=== PATIENT | female | born 1990 | race Caucasian/White ===

== ENCOUNTER 2018-09-22 18:09 | Emergency (ER) | payer MEDICAID, OTHER ==
[~2018-09-22] VITALS: Ht 162.6 cm; Wt 94.0 kg
[2018-09-22 18:15] VITALS: BP 161/109
[2018-09-22] MEDS ORDERED: ketorolac trometh. 30mg/ml inj. IV ONE (18:40)
[2018-09-22] MEDS ORDERED: ondansetron/PF 4mg/2ml inj IV ONE (18:40)
[2018-09-22] MEDS ORDERED: NO HOME MEDS (18:46)
[2018-09-22 18:49] LABS: URINE HCG NEGATIVE (NEG)
[2018-09-22 18:55] LABS: CLARITY,URINE SLIGHTLY CLOUDY (Clear); COLOR,URINE YELLOW (Yellow); GLUCOSE, URINE NEGATIVE (Neg); KETONES,URINE NEGATIVE (Neg); LEUKOCYTE ESTERASE ,URINE TRACE (Neg); NITRITES, URINE POSITIVE (Neg); OCCULT BLOOD,URINE TRACE-INTACT (Neg); PH,URINE 7.5 (4.8-8.0); PROTEIN,URINE NEGATIVE (Neg); UROBILINOGEN,URINE 0.2 E.U/dL (0.2-1.0)
[2018-09-22 18:57] LABS: UA COLLECTION TYPE CLN CATCH MIDSTREAM
[2018-09-22 19:13] LABS: BACTERIA,URINE 3+ /HPF (Neg); MUCUS STRANDS NONE SEEN /LPF (Neg); SQUAMOUS EPITHELIAL CELL,UR FEW /LPF (FEW)
[2018-09-22 20:00] LABS: ALANINE AMINOTRANSFERASE 30 U/L (12-78); ALBUMIN 4.1 G/DL (3.4-5.0); ALKALINE PHOSPHATASE 62 IU/L (46-116); ANION GAP 11 (8-16); ASPARTATE AMINO TRANSFERASE 17 U/L (10-37); BILIRUBIN,TOTAL 0.5 MG/DL (0.1-1.0); BLOOD UREA NITROGEN 9 MG/DL (7-18); BUN/CREATININE RATIO 10.7 (6.6-38.0); CALCIUM 9.1 MG/DL (8.5-10.1); CHLORIDE 100 MMOL/L (99-107); CREATININE 0.84 MG/DL (0.40-0.90); GLUCOSE 106 MG/DL (70-104); POTASSIUM 3.3 MMOL/L (3.5-5.1); SODIUM 139 MMOL/L (135-145); TOTAL PROTEIN 8.1 G/DL (6.4-8.2); eGFR 82 ML/MIN
[2018-09-22 20:16] LABS: BASOPHILS % (AUTO) 0.3 % (0-1); EOSINOPHILS # (AUTO) 0.2 X10'3 (0-0.9); HEMATOCRIT 38.5 % (35.0-45.0); HEMOGLOBIN 12.5 g/dl (12.0-16.0); LYMPHOCYTES # (AUTO) 2.1 X10'3 (1.1-4.8); LYMPHOCYTES % (AUTO) 19.4 % (21-51); MEAN CORPUSCULAR HEMOGLOBIN 27.8 PG (27.0-31.0); MEAN CORPUSCULAR HGB CONC 32.4 % (33.0-36.5); MEAN CORPUSCULAR VOLUME 85.8 FL (78-98); MEAN PLATELET VOLUME 10.9 FL (7.4-10.4); MONOCYTES # (AUTO) 0.6 X10'3 (0-0.9); MONOCYTES % (AUTO) 5.5 % (2-12); NEUTROPHILS # (AUTO) 7.7 X10'3 (1.8-7.7); NEUTROPHILS % (AUTO) 72.8 % (42-75); PLATELET COUNT 308 X10'3 (140-440); RED BLOOD COUNT 4.49 X10'6 (4.20-5.60); RED CELL DISTRIBUTION WIDTH 17.5 % (11.5-14.5); WHITE BLOOD COUNT 10.6 X10'3 (4.5-11.0)
[2018-09-22] MEDS ORDERED: nitrofurantoin macrocrystal 100mg capsule PO STA (20:26)
--- NOTE | 2018-09-22 20:27 | NUR ---
pt c/o pain again, PA made aware.
[2018-09-22] MEDS ORDERED: acetaminophen 325mg tablet PO ONE (20:30)
[2018-09-22] MEDS ORDERED: phenazopyridine 100mg tablet PO ONE (20:30)
[2018-09-22] MEDS ORDERED: PHEN-716 PO (20:32)
[2018-09-22] MEDS ORDERED: nitrofuran/nitrofuran macrocrysal 100 MG capsule PO STA (20:32)
[2018-09-22] MEDS ORDERED: NITR-79 PO (20:32)
[2018-09-22 20:41] LABS: LARGE PLATELETS MODERATE; PLATELET ESTIMATE NORMAL
[2018-09-22] MEDS ORDERED: ONDA4TAB6 PO (20:46)
--- NOTE | 2018-09-22 20:48 | NUR ---
PT REFUSED TYLENOL AND STATED SHE WAS JUST GOING TO LEAVE. INSTRUCTED PT TO ALLOW ME TO AT LEAST GIVE HER THE MEDS FOR THE UTI AND THE PYRIDIUM, WASN'T SURE IF SHE WAS GOING TO TAKE THEM, BUT SHE DID
== END 2018-09-22 20:54 | disposition home or self-care (01) ==
LOC: ER 18:10
DX: N39.0 Urinary tract infection, site not specified (principal); Z88.0 Allergy status to penicillin; Z79.899 Other long term (current) drug therapy
CPT/HCPCS: 36415; 74018; 80053; 81001; 81025; 85025; 87077; 87088; 87186; 96374; 96375; 99284; J1885; J2405

== ENCOUNTER 2019-04-16 13:44 | Emergency (ER) | payer MEDICAID ==
[~2019-04-16] VITALS: Ht 160 cm; Wt 92.0 kg
[~2019-04-16 13:44] MED LIST: NITR-79 PO; NO HOME MEDS; ONDA4TAB6 PO; PHEN-716 PO
[2019-04-16 13:55] VITALS: BP 140/98
[2019-04-16] MEDS ORDERED: CLIN-96 PO (14:52)
[2019-04-16] MEDS ORDERED: acetaminophen 325mg tablet PO ONE (15:20)
--- NOTE | 2019-04-16 15:55 | NUR ---
found patients discharge paper and abx prescription in [employer] garbage can.
== END 2019-04-16 15:37 | disposition home or self-care (01) ==
LOC: ER 13:45
DX: K04.7 Periapical abscess without sinus (principal); Z87.442 Personal history of urinary calculi; Z88.0 Allergy status to penicillin; Z88.5 Allergy status to narcotic agent; Z79.899 Other long term (current) drug therapy
CPT/HCPCS: 99283

== ENCOUNTER 2021-02-12 10:46 | Emergency (ER) | payer MEDICAID ==
[~2021-02-12] VITALS: Ht 160 cm; Wt 90.0 kg
[~2021-02-12 10:46] MED LIST changes: +CLIN-97 PO
[2021-02-12 11:35] LABS: CLARITY,URINE SLIGHTLY CLOUDY (Clear); COLOR,URINE YELLOW (Yellow); GLUCOSE, URINE NEGATIVE (Neg); KETONES,URINE TRACE mg/dl (Neg); LEUKOCYTE ESTERASE ,URINE TRACE (Neg); NITRITES, URINE NEGATIVE (Neg); OCCULT BLOOD,URINE NEGATIVE (Neg); PH,URINE 6.5 (4.8-8.0); PROTEIN,URINE 30 mg/dl (Neg); UA COLLECTION TYPE CLN CATCH MIDSTREAM
[2021-02-12 11:36] LABS: URINE HCG NEGATIVE (NEG)
[2021-02-12 11:41] LABS: BASOPHILS # (AUTO) 0.1 X10'3 (0-0.2); BASOPHILS % (AUTO) 0.9 % (0-1); EOSINOPHILS # (AUTO) 0.1 X10'3 (0-0.9); EOSINOPHILS % (AUTO) 1.2 % (0-6); HEMATOCRIT 41.4 % (35.0-45.0); HEMOGLOBIN 13.8 g/dl (12.0-16.0); LYMPHOCYTES # (AUTO) 1.8 X10'3 (1.1-4.8); LYMPHOCYTES % (AUTO) 29.9 % (21-51); MEAN CORPUSCULAR HGB CONC 33.4 g/dL (33.0-36.5); MEAN CORPUSCULAR VOLUME 89.8 FL (78-98); MEAN PLATELET VOLUME 10.1 FL (7.4-10.4); MONOCYTES # (AUTO) 0.4 X10'3 (0-0.9); MONOCYTES % (AUTO) 6.4 % (2-12); NEUTROPHILS # (AUTO) 3.7 X10'3 (1.8-7.7); NEUTROPHILS % (AUTO) 61.6 % (42-75); PLATELET COUNT 230 X10'3 (140-440); RED BLOOD COUNT 4.62 X10'6 (4.20-5.60); RED CELL DISTRIBUTION WIDTH 15.7 % (11.5-14.5)
[2021-02-12 11:42] LABS: MUCUS STRANDS MANY /LPF (Neg); SQUAMOUS EPITHELIAL CELL,UR MANY /LPF (FEW)
[2021-02-12 11:44] LABS: BACTERIA,URINE 1+ /HPF (Neg)
[2021-02-12 11:45] LABS: RBC,URINE 0-2 /HPF (0-2)
[2021-02-12 11:47] LABS: CAL OXALATE CRYSTALS 1+ /HPF (NEGATIVE)
[2021-02-12 11:51] LABS: ALANINE AMINOTRANSFERASE 42 U/L (12-78); ALBUMIN 3.4 G/DL (3.4-5.0); ALBUMIN/GLOBULIN RATIO 0.9 (1.1-1.5); ALKALINE PHOSPHATASE 75 IU/L (46-116); ANION GAP 5 (8-16); ASPARTATE AMINO TRANSFERASE 33 U/L (10-37); BILIRUBIN,TOTAL 0.8 MG/DL (0.1-1.0); BLOOD UREA NITROGEN 5 MG/DL (7-18); BUN/CREATININE RATIO 5.9 (6.6-38.0); CALCIUM 8.6 MG/DL (8.5-10.1); CHLORIDE 103 MMOL/L (99-107); CREATININE 0.85 MG/DL (0.40-0.90); GLUCOSE 118 MG/DL (70-104); LIPASE 107 U/L (73-393); POTASSIUM 3.5 MMOL/L (3.5-5.1); SODIUM 135 MMOL/L (135-145); TOTAL CARBON DIOXIDE 27.1 MMOL/L (24-32); TOTAL PROTEIN 7.3 G/DL (6.4-8.2); eGFR 80 ML/MIN
[2021-02-12] MEDS ORDERED: ondansetron 4mg rapidly disintigrating tab PO ONE (12:05)
[2021-02-12] MEDS ORDERED: ketorolac tromethamine 15mg/ml inj. IM ONE (12:05)
--- NOTE | 2021-02-12 12:47 | NUR ---
Received patient in bed 7.
[2021-02-12] MEDS ORDERED: normal saline 1000ml 1,000 ML IV ONE (12:55)
[2021-02-12] MEDS ORDERED: morphine 4 MG/ML inj SYRINge IV ONE (12:55)
--- NOTE | 2021-02-12 13:14 | NUR ---
pt to ct.
--- NOTE | 2021-02-12 13:22 | NUR ---
patient reports "itchy arm", received morphine in the past without adverse reaction, first time having toradol,will add toradol into patient's allergy list.
[2021-02-12] MEDS ORDERED: diphenhydrAMINE 50 mg/ml inj IV STA (13:25)
[2021-02-12] MEDS ORDERED: CEPH250T PO (14:19)
[2021-02-12] MEDS ORDERED: TRAM50TA2 PO (14:19)
[2021-02-12] MEDS ORDERED: ONDA4TAB6 PO (14:19)
[2021-02-12 14:32] VITALS: BP 139/91
== END 2021-02-12 14:34 | disposition home or self-care (01) ==
LOC: ER 10:46
DX: R30.0 Dysuria (principal); K52.9 Noninfective gastroenteritis and colitis, unspecified; N39.0 Urinary tract infection, site not specified; R10.32 Left lower quadrant pain; R11.2 Nausea with vomiting, unspecified; R10.12 Left upper quadrant pain; Z87.442 Personal history of urinary calculi; Z88.0 Allergy status to penicillin; Z88.8 Allergy status to other drugs, medicaments and biological substances; Z88.5 Allergy status to narcotic agent; Z79.2 Long term (current) use of antibiotics; Z79.899 Other long term (current) drug therapy
CPT/HCPCS: 36415; 74176; 80053; 81001; 81025; 83690; 85025; 96361; 96372; 96374; 96375; 99284; J1200; J1885; J2270; J7030